=== PATIENT | female | born 1950 | race American Indian/Alaskan Native ===

== ENCOUNTER 2021-10-17 09:55 | Emergency (ER) | payer MEDICARE, OTHER ==
--- NOTE | 2021-10-17 10:00 | Emergency Department Report ---
ED GI Bleed HPI - General Chief complaint: GI Bleed Stated complaint: BLOOD IN STOOL Time Seen by Provider: 10/17/21 09:57 - History of Present Illness Initial comments: Patient presents by ambulance secondary to bloody stools. She actually states that she has been having black and tarry looking stool since about 3 AM. She has had some lower abdominal pain associated with this. The pain is cramping in nature. This is not as severe pain as she has had before. Patient has had a history of GI bleeds previously. She is not anticoagulated. 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 She actually underwent blood and platelet transfusion yesterday. She states that her doctor called her last night and said her blood count was still low. She does feel dyspneic. That is worse with exertion. She has no orthopnea. There is no chest pain. Patient denies bleeding from other sites. She has not had blood in the urine. There has been no bleeding from the gums when she brushes her teeth. All of her care has been rendered at the [facility]. - Related Data Previous Rx's Medication Instructions Recorded Last Taken Type Dicyclomine [Bentyl] 20 mg PO QID PRN #20 tablet 10/17/21 Unknown Rx Sucralfate [Carafate] 1 gm PO ACHS #120 tablet 10/17/21 Unknown Rx Allergies Allergy/AdvReac Type Severity Reaction Status Date / Time Unable to Assess Allergy Unverified 10/17/21 10:01 ED Review of Systems ROS: Stated complaint: BLOOD IN STOOL Other details as noted in HPI Comment: All other systems reviewed and negative Constitutional: denies: fever Eyes: denies: eye pain ENT: denies: epistaxis Respiratory: see HPI Cardiovascular: denies: chest pain Endocrine: denies: unexplained weight loss Gastrointestinal: as per HPI Genitourinary: denies: hematuria Musculoskeletal: denies: back pain Skin: denies: rash Neurological: denies: headache Hematological/Lymphatic: denies: easy bruising ED Past Medical Hx - Past Medical History Additional medical history: AML, GI bleed - Medications Home Medications: Home Medications Medication Instructions Recorded Confirmed Last Taken Type Dicyclomine [Bentyl] 20 mg PO QID PRN #20 tablet 10/17/21 Unknown Rx Sucralfate [Carafate] 1 gm PO ACHS #120 tablet 10/17/21 Unknown Rx ED Physical Exam - General Limitations: No Limitations, Other (Pulse ox noted and normal) General appearance: alert, in distress (Mild) - Head Head exam: Present: atraumatic, normocephalic, normal inspection - Eye Eye exam: Present: normal appearance, PERRL, EOMI, other (Conjunctival pallor). Absent: scleral icterus - ENT ENT exam: Present: mucous membranes dry, normal external ear exam - Neck Neck exam: Present: normal inspection. Absent: meningismus - Respiratory Respiratory exam: Present: normal lung sounds bilaterally. Absent: respiratory distress - Cardiovascular Cardiovascular Exam: Present: regular rate, normal rhythm, systolic murmur (2/6) - GI/Abdominal GI/Abdominal exam: Present: soft, tenderness (Lower abdomen). Absent: distended, guarding, rebound - Rectal Rectal exam: Present: other (Normal tone with brown stool.) - Extremities Exam Extremities exam: Present: normal capillary refill. Absent: calf tenderness - Back Exam Back exam: Absent: CVA tenderness (R), CVA tenderness (L) - Neurological Exam Neurological exam: Present: alert, oriented X3, CN II-XII intact. Absent: motor sensory deficit - Psychiatric Psychiatric exam: Present: normal affect, normal mood - Skin Skin exam: Present: warm, dry ED Course Vital Signs 10/17/21 10/17/21 10:11 10:15 Pulse Rate 77 72 Respiratory 17 13 Rate Blood Pressure 118/59 O2 Sat by Pulse 100 Oximetry - Reevaluation(s) Reevaluation #1: 10/17/21 09:58 EMS was met. IV and labs were ordered. Old records reviewed. She will likely require admission. Reevaluation #2: 10/17/21 11:59 Labs were noted. Patient was discharged. ED Medical Decision Making - Lab Data Result diagrams: 10/17/21 10:29 10/17/21 10:29 Rhythm strip: Normal sinus rhythm without ectopy. Monitor observe 10 seconds. - EKG Data -: EKG Interpreted by Me - EKG Data When compared to previous EKG there are: previous EKG unavailable 10/17/21 10:40 1028-EKG shows normal sinus rhythm at 66. Intervals are normal including a QRS of 82 and a QT corrected of 1-34. Patient has no ST elevation to suggest STEMI. There is no ST depression suggestive of ischemia. There is diffuse T wave flattening. - Medical Decision Making Patient presented by ambulance with reports of rectal bleeding. She has stool that is normal color and heme positive. She did not have melena. She does not have new anemia that would require transfusion. She does have leukopenia which would be consistent with her recent treatments and history of AML. Patient does not appear to be septic or toxic. She is not hypotensive. She is not dizzy or lightheaded. She states that she would like to go home. She considers following up with her regular doctor and her oncologist of primary importance. She was started on medication to help with discomfort. She was continued on her regular medication for her AML. Critical care attestation.: If time is entered above; I have spent that time in minutes in the direct care of this critically ill patient, excluding procedure time. ED Disposition Clinical Impression: Lower abdominal pain GI bleed Qualifiers: GI bleed type/associated pathology: unspecified gastrointestinal hemorrhage type Qualified Code(s): K92.2 - Gastrointestinal hemorrhage, unspecified Disposition: HOME / SELF CARE / HOMELESS Is pt being admited?: No Condition: Stable Instructions: Gastrointestinal Bleeding Additional Instructions: Have a bland diet. Drink water. Return for problems. Follow-up with your regular doctor and your GI doctor and your oncologist Tuesday through the [facility]. Return for problems or concerns. Prescriptions: Dicyclomine [Bentyl] 20 mg PO QID PRN #20 tablet PRN Reason: abd pain Sucralfate [Carafate] 1 gm PO ACHS #120 tablet Referrals: PRIMARY CARE, [Referring] - 3-5 Days Forms: Accompanied Note
[2021-10-17] MEDS ORDERED: SODIUM CHLORIDE 0.9% 1000 ML 1,000 ML IV ONE (10:01)
[2021-10-17] MEDS ORDERED: PANTOPRAZOLE 40 MG INJ IV ONE (10:02)
[2021-10-17 11:24] LABS: Hematocrit 23.1 % (30.3-42.9); Mean Corpuscular HGB Conc 35 % (30-34); Mean Corpuscular Volume 84 fl (79-97); Red Blood Count 2.74 M/mm3 (3.65-5.03)
[2021-10-17 11:26] LABS: Platelet Count 55 K/mm3 (140-440)
[2021-10-17 11:46] LABS: BUN/Creatinine Ratio 23; Blood Urea Nitrogen 14 mg/dL (7-17); Calcium 8.9 mg/dL (8.4-10.2); Hemolysis Index 19
[2021-10-17 12:01] LABS: Basophils % (Manual) 0 % (0.0-1.8); Total Cells Counted 50
[2021-10-17 12:02] LABS: Platelet Estimate Consistent w Auto; RBC Morphology Normal
[2021-10-17 12:16] VITALS: BP 119/50
--- NOTE | 2021-10-18 10:50 | Electrocardiograph Report ---
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
== END 2021-10-17 13:05 | disposition home or self-care (01) ==
LOC: ED 09:55
DX: K92.2 Gastrointestinal hemorrhage, unspecified (principal); R10.30 Lower abdominal pain, unspecified
CPT/HCPCS: 36415; 80048; 82270; 85007; 85025; 86850; 86900; 86901; 93005; 96361; 96374; 99284; C9113; J7030; Q0162